=== PATIENT | male | born 1940 | race Caucasian/White ===

== ENCOUNTER 2018-04-06 13:02 | Outpatient (CLI) | payer MEDICARE ==
[~2018-04-06 13:02] MED LIST: BARIUM SULFATE 340 ML SUSP.RECON***PROCEDURE AREA ONLY**DONT ENTER PO ONE
== END 2018-04-06 23:59 | disposition home or self-care (01) ==
LOC: RAD 13:02
PROVIDERS: ATTEND Otolaryngology
DX: R13.12 Dysphagia, oropharyngeal phase (principal); R49.0 Dysphonia; G20 Parkinson's disease; Z87.891 Personal history of nicotine dependence
CPT/HCPCS: 74230